=== PATIENT | female | born 2000 | race Caucasian/White ===

== ENCOUNTER 2021-06-15 20:29 | Emergency (ER) | payer OTHER ==
[2021-06-15 20:53] LABS: HEMOGLOBIN 13.3 gm/dl (12.3-15.3); RED BLOOD COUNT 4.3 M/UL (4.00-5.10); WHITE BLOOD COUNT 6.7 K/UL (4.5-11.0)
[2021-06-15 21:17] LABS: BUN/CREATININE RATIO 17 (0-10)
== END 2021-06-15 22:37 | disposition home or self-care (01) ==
LOC: ER1 20:29
PROVIDERS: Physician Assistant
DX: O99.891 Other specified diseases and conditions complicating pregnancy (principal); R10.30 Lower abdominal pain, unspecified; M54.9 Dorsalgia, unspecified; Z88.8 Allergy status to other drugs, medicaments and biological substances; Z88.1 Allergy status to other antibiotic agents; Z3A.01 Less than 8 weeks gestation of pregnancy
CPT/HCPCS: 80053; 81001; 84702; 84703; 85025; 87086; 99284

== ENCOUNTER 2021-09-21 21:40 | Emergency (ER) | payer OTHER ==
[2021-09-21 22:31] LABS: HEMOGLOBIN 12.4 gm/dl (12.3-15.3); RED BLOOD COUNT 4.05 M/UL (4.00-5.10); WHITE BLOOD COUNT 8.9 K/UL (4.5-11.0)
[2021-09-21 22:49] LABS: BUN/CREATININE RATIO 11 (0-10)
== END 2021-09-21 23:00 | disposition home or self-care (01) ==
LOC: ER1 21:40
PROVIDERS: Physician Assistant
DX: O99.891 Other specified diseases and conditions complicating pregnancy (principal); R10.30 Lower abdominal pain, unspecified; Z3A.19 19 weeks gestation of pregnancy; Z88.8 Allergy status to other drugs, medicaments and biological substances
CPT/HCPCS: 80053; 81001; 85025; 99284

== ENCOUNTER 2021-09-22 20:03 | Emergency (ER) | payer OTHER | END 2021-09-22 21:45 | disposition left against medical advice (07) | LOC: ER1 20:03 | DX: Z53.21 Procedure and treatment not carried out due to patient leaving prior to being seen by health care provider (principal) ==

== ENCOUNTER 2022-08-23 21:14 | Emergency (ER) | payer OTHER ==
[2022-08-23 21:41] LABS: HEMOGLOBIN 14.1 gm/dl (12.3-15.3); RED BLOOD COUNT 4.92 M/UL (4.00-5.10); WHITE BLOOD COUNT 7.8 K/UL (4.5-11.0)
[2022-08-23 22:03] LABS: BUN/CREATININE RATIO 15 (0-10)
[2022-08-24] MEDS ORDERED: ZOFRAN ODT 4 MG4 MG PO (02:13)
[2022-08-24] MEDS ORDERED: BENTYL 20MG TAB20 MG PO (02:13)
== END 2022-08-24 02:24 | disposition home or self-care (01) ==
LOC: ER1 21:14
PROVIDERS: Family Medicine
DX: R10.11 Right upper quadrant pain (principal); R10.12 Left upper quadrant pain; R10.811 Right upper quadrant abdominal tenderness; R10.812 Left upper quadrant abdominal tenderness; R11.0 Nausea
CPT/HCPCS: 80053; 81001; 83690; 84703; 85025; 99284; Q9967